=== PATIENT | female | born 1975 | race American Indian/Alaskan Native ===

== ENCOUNTER 2017-07-22 09:43 | Emergency (ER) | payer OTHER ==
[2017-07-22 10:18] VITALS: BP 148/96
--- NOTE | 2017-07-22 12:31 | XRay Report ---
RIGHT KNEE RADIOGRAPHS INDICATION: Swelling, pain behind knee. COMPARISON: None similar. FINDINGS: AP, lateral and oblique right knee radiographs demonstrate intact bony articulation and appearance. Normal soft tissues without evidence of suprapatellar effusion. CONCLUSION: Normal right knee radiographs. Thank you for the opportunity to participate in this patient's care.
--- NOTE | 2017-07-22 13:01 | Emergency Department Report ---
HPI - General Chief Complaint: Extremity Problem,Nontraumatic Time Seen by Provider: 07/22/17 11:47 - HPI HPI: Patient is a 41-year-old female who presents to ED complaining of right knee pain for the past 4 days. 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 Patient states yesterday she felt to bump on the back of her knee causing her pain. Patient states that pain is worsened with prolonged walking and standing. She denies fever/chills/headache/blurred vision or any other problems ED Past Medical Hx - Past Medical History Hx Diabetes: Yes ([place]) Hx Headaches / Migraines: Yes (past hx) Hx Asthma: Yes (patient) Hx COPD: No - Surgical History Additional Surgical History: cervical fusion, d&c - Social History Smoking Status: Never Smoker - Medications Home Medications: Home Medications Medication Instructions Recorded Confirmed Last Taken Type Ibuprofen [Motrin 600 MG tab] 800 mg PO Q6H PRN #30 tablet 04/02/16 04/19/16 Unknown Rx oxyCODONE /ACETAMINOPHEN [Percocet 1 - 2 tab PO Q4H PRN #30 tablet 04/02/1609/28 Unknown Rx 5/325 mg] Cyclobenzaprine [Flexeril] 10 mg PO QHS PRN #20 tablet 07/22/17 Unknown Rx Ibuprofen [Motrin] 800 mg PO Q8HR PRN #30 tablet 07/22/17 Unknown Rx ED Review of Systems ROS: Stated complaint: KNEE PAIN Other details as noted in HPI Constitutional: denies: chills, fever Eyes: denies: eye pain, eye discharge, vision change ENT: denies: ear pain, throat pain Respiratory: denies: cough, shortness of breath, wheezing Cardiovascular: denies: chest pain, palpitations Endocrine: no symptoms reported Gastrointestinal: denies: abdominal pain, nausea, diarrhea Genitourinary: denies: urgency, dysuria, discharge Musculoskeletal: denies: back pain, joint swelling, arthralgia Skin: denies: rash, lesions Neurological: denies: headache, weakness, paresthesias Psychiatric: denies: anxiety, depression Hematological/Lymphatic: denies: easy bleeding, easy bruising Physical Exam - Physical Exam Vital Signs: Vital Signs 07/22/17 10:01 Temperature 98.5 F Pulse Rate 75 Respiratory 16 Rate Blood Pressure 148/96 O2 Sat by Pulse 100 Oximetry Physical Exam: GENERAL: Alert and oriented x3, no apparent distress, Normal Gait, atraumatic. HEAD: Head is normocephalic and a-traumatic. LUNGS: Symetrical with respiration, No wheezing, no rales or crackles, CTAB. HEART: S1, S2 present, regular rate and rhythm without murmur, no rubs, no gallops. Non tender to palpation BACK: Full range of motion, no spinal tenderness, nontender to palpation. EXTREMITIES/MUSCULOSKELETAL: No cyanosis, clubbing, rash, lesions or edema. Full ROM bilaterally. UEPulses 2+ bilaterally. LE 5+ strength bilaterally, no calf tenderness, no knee joint effusion or erythema or swelling. Mild tenderness to palpation on the back of the knee. Patient able to flex and extend her knee joints with no problems NEUROLOGIC: The patient is cooperative with no focal neurologic deficits. Normal speech. Normal sensation in bilateral upper and lower extremities, No loss of sensation ED Course Vital Signs 07/22/17 10:01 Temperature 98.5 F Pulse Rate 75 Respiratory 16 Rate Blood Pressure 148/96 O2 Sat by Pulse 100 Oximetry ED Medical Decision Making - Radiology Data Radiology results: report reviewed, image reviewed Ordering Physician: ROSEMARY GLEZ Date of Service: 07/22/17 Procedure(s): XR knee 3V RT Accession Number(s): [id number] cc: ROSEMARY GLEZ Fluoro Time In Minutes: RIGHT KNEE RADIOGRAPHS INDICATION: Swelling, pain behind knee. COMPARISON: None similar. FINDINGS: AP, lateral and oblique right knee radiographs demonstrate intact bony articulation and appearance. Normal soft tissues without evidence of suprapatellar effusion. CONCLUSION: Normal right knee radiographs. Thank you for the opportunity to participate in this patient's care. Transcribed By: RS Dictated By: NANCY SANDERS MD Electronically Authenticated By: NANCY SANDERS MD Signed Date/Time: 07/22/17 1227 - Medical Decision Making 41-year-old female presents to ED with right knee pain ED course: Patient received xray in ED. Vital signs are normal patient is in no acute distress Discussed with patient follow-up with primary care physician. Discussed the patient and take medications as prescribed. Patient has no neurological deficit. Patient is alert and oriented 3 and understands all instructions given. Discussed drowsiness effect of Flexeril makes her drowsy and not to operate machinery while taking flexeril Critical care attestation.: If time is entered above; I have spent that time in minutes in the direct care of this critically ill patient, excluding procedure time. ED Disposition Clinical Impression: Right knee pain Qualifiers: Chronicity: acute Qualified Code(s): M25.561 - Pain in right knee Disposition: - TO HOME OR SELFCARE Is pt being admited?: No Does the pt Need Aspirin: No Condition: Stable Instructions: Arthralgia (ED), Knee Pain (ED), Knee Exercises (GEN), Knee Bursitis (ED) Additional Instructions: Make sure to follow up with the primary care physician as discussed. Take all your medications as you've been prescribed. If pain persists follow up with her orthopedic doctor as you've been referred If you have any worsening symptoms or develop new symptoms please return to ED immediately. Prescriptions: Cyclobenzaprine [Flexeril] 10 mg PO QHS PRN #20 tablet PRN Reason: Muscle Spasm Ibuprofen [Motrin] 800 mg PO Q8HR PRN #30 tablet PRN Reason: Pain Referrals: PRIMARY CARE, [Primary Care Provider] - 3-5 Days [facility] [Outside] - 3-5 Days [facility] [Outside] - 3-[address] [facility] [Outside] - 3-5 Days SACHIN ANDREW MD [Staff Physician] - 3-5 Days Forms: Accompanied Note, Work/School Release Form(ED) Time of Disposition: 13:06
== END 2017-07-22 13:24 | disposition home or self-care (01) ==
LOC: ED 09:43
DX: M25.561 Pain in right knee (principal); E11.9 Type 2 diabetes mellitus without complications; G43.909 Migraine, unspecified, not intractable, without status migrainosus; J45.909 Unspecified asthma, uncomplicated; Z88.0 Allergy status to penicillin
CPT/HCPCS: 99283